=== PATIENT | female | born 1950 | race Caucasian/White ===

== ENCOUNTER → 2019-10-18 13:00 | Outpatient (CLI) | payer MEDICARE, SELFPAY ==
[2019-10-08 13:30] VITALS: BMI 21.8
--- NOTE | 2019-10-18 13:04 | ECHOD_ITS ---
Reason For Study: CHEST PAIN Procedure This was a 2D Doppler, Color Flow transthoracic echocardiogram. Left Ventricle Normal size and thickness. The estimated ejection fraction is 55-60 %. Stage 1 diastolic dysfunction. No regional wall motion abnormalities noted. Right Ventricle Normal right ventricle. Normal systolic function. Atria Normal left atrium. Normal right atrium. Normal atrial septum. Mitral Valve The mitral valve is structurally normal. No prolapse or stenosis seen. Tricuspid Valve Normal tricuspid valve. Mild (1+) tricuspid valve insufficiency. Right ventricular systolic pressure estimated to be 27 mmHg. Aortic Valve Normal aortic valve. Trisinus/trileaflet aortic valve. Pulmonic Valve Normal pulmonic valve. Great Vessels Normal aortic root. Normal arch. Normal inferior vena cava. Inferior vena cava collapse with sniff. Pericardium/Pleural No pericardial effusion. MMode/2D Measurements & Calculations LVIDd: 4.8 cm IVSd: 0.85 cm Ao root diam: 3.4 cm LVIDs: 3.2 cm LVPWd: 0.88 cm RVDd: 3.1 cm FS: 32.7 % LAV(MOD-bp): 52.3 ml LA A4 area: 17.4 cm2 LA dimension(2D): 3.3 cm LAV(MOD-bp) Indexed: 28.6 ml/m2 LAV(MOD-sp2): 47.9 ml LAV(MOD-sp4): 46.5 ml RA A4 area: 13.8 cm2 Time Measurements MV dec time: 0.28 sec Doppler Measurements & Calculations MV E max nakul: 49.3 cm/sec Lat Peak E' Nakul: 11.7 cm/sec Med Peak E' Nakul: 4.5 cm/sec MV A max nakul: 38.9 cm/sec E/E' lat: 4.2 E/E' med: 10.9 MV E/A: 1.3 Ao V2 max: 123.7 cm/sec LV V1 max: 102.4 cm/sec PA V2 max: 69.7 cm/sec Ao max P.1 mmHg LV V1 max P.2 mmHg Ao V2 mean: 83.5 cm/sec Ao mean P.1 mmHg Ao V2 VTI: 25.4 cm TR max nakul: 228.0 cm/sec TR max P.8 mmHg Interpretation Summary The estimated ejection fraction is 55-60 %. Stage 1 diastolic dysfunction. Mild (1+) tricuspid valve insufficiency. Right ventricular systolic pressure estimated to be 27 mmHg. There is no comparison study available. Ordering Physician: Bishop William Referring Physician: Osmany Wang Performed By: Azalea Del Angel, RASHAWN, RVT
== END ==
PROVIDERS: PCP Preventive Medicine Occupational Medicine; Referring Provider Internal Medicine Cardiovascular Disease; Visit Provider Internal Medicine Cardiovascular Disease
DX: R00.2 Palpitations (principal)
CPT/HCPCS: 93306

== ENCOUNTER → 2019-11-25 12:59 | Outpatient (CLI) | payer MEDICARE, SELFPAY ==
[2019-10-08 13:30] VITALS: BMI 21.8
--- NOTE | 2019-11-25 13:00 | STE_ITS ---
Reason For Study: FAMILY HX Stress Results Protocol: [facility] Protocol Maximum Predicted HR: 151 bpm Target HR: 128 bpm % Maximum Predicted HR: 79 % DurationHeart Rate Stage (mm:ss) (bpm) BP Comment BASELINE 58 146/82 STAGE 1 3:00 95 148/88 STAGE 2 3:00 110 164/88 STAGE 3 3:00 120 178/94SLIGHT SOB RECOVERY 68 140/82 Stress Duration: 9:00 mm:ss Maximum Stress HR: 120 bpm Baseline Echocardiogram Findings The estimated ejection fraction is 65 %. Stress Echo Wall motion Data Resting WM Intermediate WM Stress WM Resting Wall Motion Wall Motion Stress No regional wall motion No regional wall motion abnormalities noted. abnormalities noted. EKG Data The baseline ECG displays normal sinus rhythm. The patient exercised according to the regular [facility] protocol for a total duration of 9:00. The maximum heart rate attained was 134 beats per minute. This was 88% of maximum predicted heart rate. The patient exercised into stage 4 of the [facility] protocol. During stress, there were no ST or T wave changes noted to suggest ischemia. No clinical angina was noted. Interpretation Summary The estimated ejection fraction is 65 %. Normal, adequate, treadmill echocardiogram. Negative for ischemia by EKG and echocardiographic criteria. No anginal symptoms noted. Rare PVC noted. Appropriate blood pressure response to exercise. Average exercise capacity for age. Test terminated due to the attainment of target heart rate. Final LVEF is 75%. No complications. Ordering Physician: Bishop William Referring Physician: Bishop William Performed By: Damaris Stone, RASHAWN, RVT
== END ==
PROVIDERS: PCP Preventive Medicine Occupational Medicine; Referring Provider Internal Medicine Cardiovascular Disease; Visit Provider Internal Medicine Cardiovascular Disease
DX: R94.31 Abnormal electrocardiogram [ECG] [EKG] (principal); I34.0 Nonrheumatic mitral (valve) insufficiency; I36.1 Nonrheumatic tricuspid (valve) insufficiency; Z82.49 Family history of ischemic heart disease and other diseases of the circulatory system
CPT/HCPCS: 93017; 93350

== ENCOUNTER 2022-05-05 05:54 | Day surgery (SDC) | payer MEDICARE, SELFPAY ==
--- NOTE | 2022-05-03 10:31 | EKG12_ITS ---
Test Reason : PRE OP Blood Pressure : / mmHG Vent. Rate : 049 BPM Atrial Rate : 049 BPM P-R Int : 192 ms QRS Dur : 104 ms QT Int : 438 ms P-R-T Axes : 062 016 057 degrees QTc Int : 395 ms Sinus bradycardia Otherwise normal ECG Confirmed by RADHIKA NEWBY, ANKIT ([id number]), multimedia editor AZUL CORONA ([id number]) on 05/05/2022 2:08:31 P M Referred By: Roberth Hartley Confirmed By:ROSAURA GARRIDO MD
--- NOTE | 2022-05-03 10:40 | RAD_ITS ---
STUDY: X-RAY CHEST REASON FOR EXAM: Female, 71 years old. PREOP -- EKG FIRST WILL CALL TECHNIQUE: PA or AP and lateral COMPARISON: None. FINDINGS: The lungs are clear but there is mild obliteration which could be due to strong inspiratory effort and or mild COPD. There is no demonstrated pleural abnormality. Normal size heart. Normal mediastinum and ron. Normal visualized pulmonary arteries. Normal visualized aortic arch and descending thoracic aorta. Mild degenerative changes of the mid and lower thoracic spine. Normal visualized ribs, clavicles, and shoulders. There is no demonstrated abnormality of the visualized soft tissue structures of the upper abdomen. RAD/Chest PA and Lateral IMPRESSION: Underaeration which could be due to strong inspiratory effort and/or COPD. Mild degenerative changes of the mid and lower thoracic spine. Electronically Signed: Juan Francisco Bob MD, BRENNA at 12:24 EDT ,
[2022-05-03 11:03] LABS: Absolute Lymphocyte Count 1.14 X10^3/uL (0.83-4.51); Absolute Neutrophil Count 3.4 X10^3/uL (2.0-7.7); Basophil# 0.06 X10^3/uL; Basophil% 1.1 % (0-1); Eosinophil# 0.36 X10^3/uL; Eosinophils% 6.5 % (0-5); Hematocrit 39.4 % (37-47); Lymphocyte # 1.14 X10^3/ul (0.83-4.51); Lymphocyte % 20.6 % (19-41); Mean Corpuscular Hgb 30.2 pg (27.0-32.0); Mean Corpuscular Volume 91.6 fL (81-99); Mean Platelet Vol. 8.6 fl (6.2-12.0); Monocyte# 0.55 X10^3/uL; Monocyte% 9.9 % (0-10); NRBC Flagged by Analyzer 0 % (0-5); Neutrophil # 3.41 X10^3/uL (2.7-7.7); Neutrophil % 61.7 % (47-70); Platelet Count 305 K/mm3 (150-450); RBC Distribution Width CV 13.3 % (11.6-14.6); RBC Distribution Width SD 45.4 fl (35.1-43.9); White Blood Count 5.5 K/mm3 (4.4-11.0)
[2022-05-03 11:37] LABS: Anion Gap 4 (5-15); BUN 9 mg/dL (7-18); BUN/Creat Ratio 14.5 RATIO (10-20); Calcium,Total 9.6 mg/dL (8.5-10.1); Chloride 95 mmol/L (98-107); Creatinine, Serum 0.62 mg/dL (0.55-1.02); EST Glomerular Filtration Rate 100 mL/min (>60); Est Glom Filt Rate - Afr Amer 122 mL/min (>60); Glucose 78 mg/dL (74-106); Sodium Level 131 mmol/L (136-145)
[2022-05-05] MEDS: Lactated Ringers 1,000 ML 15 ML IV (06:56)
[2022-05-05 06:58] VITALS: BP 150/89; PULSE 48; RESP 16; TEMP 36.8; O2SAT 100; BMI 21.0
[2022-05-05] MEDS: Cefazolin 2 GM in 0.9% Normal Saline 100 ML IV (07:33)
--- NOTE | 2022-05-05 08:03 | DCINST_ITS ---
Discharge Instructions Follow Up Care Test Results: Test results from this visit will be discussed in further detail at your follow- up appointment, if applicable. Discharge Plan Admission Primary Reason for Your Visit: Left ring finger cyst excision Attending Provider: Roberth Hartley Primary Care Provider: Osmany Wang Instructions Additional Instructions / Restrictions: Follow preprinted instructions from your surgeons office Discharge Orders/Prescriptions Prescriptions: No Action aspirin [Adult Aspirin Regimen] 81 mg tablet,delayed release (DR/EC) 81 mg PO DAILY metoprolol tartrate 50 mg tablet 50 mg PO BID magnesium oxide 500 mg tablet 500 mg PO DAILY pravastatin 20 MG tablet 20 mg PO DAILY Label Comments: vitamin E 400 UNIT capsule 400 unit PO DAILY valsartan-hydrochlorothiazide 1 TABLET tablet 1 tab PO DAILY multivitamin with folic acid 1 TABLET tablet 1 tab PO DAILY Calcium Citrate - Vit D Tablet 500 mg PO DAILY Other Ambulatory Orders: 12 Lead EKG (Routine) Timeframe: 20220503 Location: None Selected Ordered By: Dr. Roberth Hartley Referrals / Follow Up: Roberth Hartley DO [Med Staff - Active Staff] - Within 2 Weeks Osmany Wang DO [Primary Care Provider] - Disposition Disposition (needs filled in before D/C Order can be placed): Home, Self Care
--- NOTE | 2022-05-05 08:03 | PCM.OPRPT ---
Report of Operation Date of Procedure: 05/05/22 Description of Surgical Findings:: Preoperative diagnosis: Left ring finger distal interphalangeal joint mucous cyst Postoperative diagnosis: Left ring finger distal interphalangeal joint mucous cyst Procedure: Left ring finger distal interphalangeal joint mucous cyst excision with debridement of dorsal rim osteophyte from the distal phalanx Primary Surgeon: Roberth Hartley DO Anesthesia: MAC with digital nerve block Anesthesiologist: Demario Montano MD Complications: None apparent IV fluids: Per anesthesia record Estimated blood loss: 3 cc Specimen: None Packing/drains: None Implants: None Urine output: None recorded Preoperative indications: This is a 71-year-old female seen in the outpatient setting for a chronic left ring finger mucous cyst enlarging in appearance and causing pain when touched or bumped. 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 I saw the patient the office. We discussed benign neglect versus operative excision. She did decide upon surgical excision. The risk, benefits, terms of procedure were reviewed with patient at length and she agreed to proceed. Risks included but were not limited to bleeding, flexion, loss of life or limb, nonhealing wounds, cyst recurrence, persistent pain, stiffness, neurovascular injury, DVT or PE. She expressed understanding of these risks and wished to proceed with surgery. Description of procedure: Patient was identified the preoperative holding area by name, medical record number, and date of . The operative extremity was marked. All questions were answered to patient satisfaction. Informed consent was confirmed with the patient. At time of her procedure, patient brought to the operative suite positioned supine a standard operating table. All bony prominences well-padded. MAC anesthesia was administered. A hand table was attached to the patient's left side. Prepping the skin with rubbing alcohol, I performed a digital nerve block with 8 cc 0.25% plain bupivacaine. We then prepped and draped the left hand in a normal, sterile orthopedic fashion. We then performed a timeout with all parties in attendance in agreement with side, site, operation be performed. No concerns voiced elected proceed with surgery. 2 g Ancef was administered IV prior to the procedure by anesthesia staff. I first applied a turnicot to the left ring finger which was on for approximately 10 minutes. I marked a longitudinal incision in line with the radial paronychium centered over the distal interphalangeal joint. The cyst was slightly radial but was avoided with the incision due to significantly thin skin. Full-thickness skin flaps were developed down to the level of the joint capsule. Identified the terminal extensor tendon as well as the radial collateral ligament. The interval between the tendon and the collateral ligament was identified and subsequently used to excise joint capsule at this level. The joint was then entered. There was a dorsal rim osteophyte off the base of the distal phalanx beneath the extensor tendon. The tendon was carefully elevated with a [place] elevator and I used a rongeur to debride the dorsal rim osteophyte. The cyst stalk was encountered throughout dissection which appeared to be tracking from the radial aspect of the joint. I did open the cyst stock and expressed gelatinous clear fluid consistent with a mucous cyst. The stalk of the cyst was excised and cyst contents were cauterized. I did not excise the complete cyst due to the thin skin overlying the cyst. Turnicot was removed. Hemostasis achieved with bipolar cautery. The wound was thoroughly irrigated normal saline solution. I then closed the wound in standard fashion with interrupted simple 4-0 nylon suture. Xeroform was applied as well as a bulky loose dressing. Anesthesia was reversed. Patient was transferred to a gurney and subsequently to PACU in stable condition. She tolerated procedure well without apparent complication. Postoperative plan: Patient be discharged home today after meeting same-day surgery criteria. Patient will be weightbearing less than 3 pounds to the left hand. She will follow-up in 10 days for suture removal and wound check. Active range of motion encouraged. Patient has pain medicine left over from a another procedure at home otherwise, patient will use [id number] Tylenol for pain relief. Ice and elevation encouraged.
[2022-05-05 08:04] VITALS: BP 116/67; BP 150/89; PULSE 51; RESP 16; TEMP 36.2; O2SAT 97
[2022-05-05 08:10] VITALS: BP 121/75; BP 150/89; PULSE 52; RESP 16; O2SAT 97
[2022-05-05 08:15] VITALS: BP 132/78; BP 150/89; PULSE 49; RESP 14; O2SAT 97
[2022-05-05 08:20] VITALS: BP 139/73; BP 150/89; PULSE 48; RESP 14; TEMP 36.3; O2SAT 97
[2022-05-05 08:29] VITALS: BP 150/89
== END 2022-05-05 08:48 | disposition home or self-care (01) ==
LOC: SDC 05:55 → AC 06:09
PROVIDERS: PCP Preventive Medicine Occupational Medicine; Referring Provider Student in an Organized Health Care Education/Training Program; Visit Provider Student in an Organized Health Care Education/Training Program
PROC: (CPT 26160; principal; 2022-05-05 07:20)
DX: M19.042 Primary osteoarthritis, left hand (principal); M67.442 Ganglion, left hand; M47.814 Spondylosis without myelopathy or radiculopathy, thoracic region; E78.00 Pure hypercholesterolemia, unspecified; I10 Essential (primary) hypertension
CPT/HCPCS: 26160; 01810; 36415; 71046; 80048; 85025; 93005; J7120; J2405